=== PATIENT | female | born 1960 | race Caucasian/White ===

== ENCOUNTER → 2017-02-26 09:23 | Outpatient (CLI) | payer MEDICARE | END | disposition home or self-care (01) | LOC: D.RT 08:00 | DX: J44.9 Chronic obstructive pulmonary disease, unspecified (principal) ==

== ENCOUNTER → 2017-04-13 11:36 | Outpatient (CLI) | payer MEDICARE | END | disposition home or self-care (01) | LOC: D.US 04-05 10:00 | DX: N60.02 Solitary cyst of left breast (principal); R92.8 Other abnormal and inconclusive findings on diagnostic imaging of breast ==

== ENCOUNTER → 2017-05-21 09:30 | Outpatient (CLI) | payer MEDICARE | END | disposition home or self-care (01) | LOC: D.CT 09:30 | DX: R93.8 Abnormal findings on diagnostic imaging of other specified body structures (principal) ==

== ENCOUNTER → 2018-02-01 10:08 | Outpatient (CLI) | payer MEDICARE | END | disposition home or self-care (01) | LOC: D.US 10:08 | DX: I12.9 Hypertensive chronic kidney disease with stage 1 through stage 4 chronic kidney disease, or unspecified chronic kidney disease (principal); N18.2 Chronic kidney disease, stage 2 (mild); N13.9 Obstructive and reflux uropathy, unspecified; G62.9 Polyneuropathy, unspecified; I70.1 Atherosclerosis of renal artery; J44.9 Chronic obstructive pulmonary disease, unspecified; Z68.1 Body mass index [BMI] 19.9 or less, adult ==

== ENCOUNTER → 2018-09-28 09:48 | Outpatient (CLI) | payer MEDICARE, MEDICAID | END | disposition home or self-care (01) | LOC: D.MAMMO 09-01 14:15 | PROVIDERS: ATTEND Nurse Practitioner Acute Care | DX: Z12.31 Encounter for screening mammogram for malignant neoplasm of breast (principal) ==

== ENCOUNTER 2019-01-23 10:56 | Outpatient (CLI) | payer MEDICARE, MEDICAID ==
[~2019-01-23] VITALS: Ht 172.7 cm; Wt 47.7 kg
--- NOTE | ~2019-01-23 | HEMODYNAMI ---
PATIENT:TA LORENZO MEDICAL RECORD: [id number] : 56 LOCATION:[facility] ADMISSION DATE: 01/23/19 Generatedon:01/23/201914:28 Patient name: TA LORENZO Patient #: [id number] SSN: [id number] : 1960 Date of study: 01/23/2019 Page: Of Hemodynamic Procedure Report Patient Data Patient Demographics Procedure consent was obtained First Name: TA Gender: Female Last Name: MAURA : 1960 [facility] Initial: FUAD Age: 58 year(s) Patient #: [id number] Race: SSN: [id number] Additional ID: [id number] Contact details [address]: [address] [place] [address] State: [place] City: [place] Zip code: [address] Admission Admission Data Admission Date: 01/23/2019 Admission Time: 10:56 Arrival Date: 01/23/2019 Arrival Time: 13:00 Admit Source: Other Insurance Payor: Medicare Height (in.): 68.11 BSA: 1.56 (m2) Height (cm.): 173 BMI: 16.04 (kg/m2) Weight (lbs.): 105.82 Weight (kg.): 48 Lab Results Lab Result Date: 01/23/2019 Lab Result Time: 0:00 Biochemistry Name Units Result Min Max BUN mg/dl 8 --(*---)-- 7 18 Creatinine mg/dl 0.6 --(*---)-- 0.6 1.3 CBC Name Units Result Min Max Hemoglobin g/dl 14.2 --(*---)-- 13.5 17.5 Procedure Procedure Types Cath Procedure Diagnostic Procedure [facility] w/Coronaries Procedure Description Procedure Date Procedure Date: 01/23/2019 Procedure Start Time: 14:16 Procedure End Time: 14:27 Procedure Staff Name Function Loc Antoine MD Performing Physician Yobani Herrera RT Monitor Eula Pollard RT Scrub Aliya Foster RN Nurse Procedure Data Cath Procedure Fluoroscopy Diagnostic fluoroscopy Total fluoroscopy Time: 1.1 time: 1.1 min min Diagnostic fluoroscopy Total fluoroscopy dose: 81 dose: 81 mGy mGy Contrast Material Contrast Material Type Amount (ml) Isovue 300 51 Entry Location Entry Primary Successful Side Size Upsize Upsize Entry Closure Succes sful Closure Location (Fr) 1 (Fr) 2 (Fr) Remarks Device Remarks Femoral Right 5 Fr Exoseal artery Estimated blood loss: 10 ml Diagnostic catheters Device Type Used For End Catheter Placement MULTIPACK JL 4.0 5Fr Procedure catheter MULTIPACK 3DRC 5Fr Procedure catheter MULTIPACK Pigtail 5 Fr Ventriculography catheter Procedure Medications Medication Administration Route Dosage Oxygen etCO2 Nasal cannula 2 l/min Lidocaine 2% added to field 20 Heparin Flush Bag added to field 2 bags (1000units/500ml NS) 0.9% NaCl I.V. 100 ml/hr Versed I.V. 2 mg Fentanyl I.V. 50 mcg Versed I.V. 2 mg Hemodynamics Rest BSA: 1.56 (m2) HGB: 14.2 (g/dl) O2 Consumption: Estimated: 148.53 (ml/min) O2 Co nsumption indexed: Estimated:95.21 (ml/min/m) Heart Rate: 71 (bpm) Pressure Samples Time Site Value (mmHg) Purpose Heart Use Rate(bpm) 14:21 LV 125/2,8 Snapshot 76 14:21 LV 102/-11,3 EDP 81 Snapshots Pre Cath Intra NCS Post Cath Vital Signs Time Heart Resp SPO2 etCO2 NIBP Rhythm Pain Sedation Rate (ipm) (%) (mmHg) (mmHg) Status Level (bpm) 14:04:51 68 15 98 0 140/72(97) NSR 0 (11) 10(A) , No pain 14:09:09 64 16 100 17.2 134/62(98) NSR 0 (11) 10(A) , No pain 14:13:23 72 14 99 10.4 128/65(87) NSR 0 (11) 10(A) , No pain 14:17:33 73 18 98 35.2 139/62(94) NSR 0 (11) 9(A) , No pain 14:21:49 86 14 97 0 114/60(98) NSR 0 (11) 9(A) , No pain 14:25:41 74 16 96 40.4 120/58(99) NSR 0 (11) 10(A) , No pain Medications Time Medication Route Dose Verified Delivered Reason Notes Eff ectiveness by by 14:07:44 Oxygen etCO2 2 Loc Aliya used for Nasal l/min [facility] Cedric Foster RN procedure cannula 14:07:51 Lidocaine 2% added 20ml Loc Loc for local to vial [facility] anesthetic field MD MALDONADO 14:07:57 Heparin Flush added 2 Loc Loc used for Bag to bags [facility] procedure (1000units/500ml field MD MALDONADO NS) 14:08:14 0.9% NaCl I.V. 100 Loc Pisano Per ml/hr St Cedric Foster RN physician 14:13:27 Versed I.V. 2 mg Loc Grimaldoie for St Cedric Foster RN sedation 14:13:32 Fentanyl I.V. 50 Loc Reie for mcg St Cedric Foster RN sedation 14:18:53 Versed I.V. 2 mg Loc Grimaldoie for St Cedric Foster RN sedation Procedure Log Time Note 13:50:56 Aliya Foster RN sent for patient. Start room use. 13:51:37 Diagnostic Cath Status : Elective 13:52:14 Informed consent obtained and on chart 13:53:26 Admit Source: Other 13:53:40 Arrival Date: 01/23/2019 1:00:00 PM 13:53:46 Insurance Payor : Medicare 13:54:53 Patient Weight : 105.82 lbs 13:54:57 Patient Height : 68.11 inches 13:56:50 Lab Result : BUN 8 mg/dl 13:56:50 Lab Result : Hemoglobin 14.2 g/dl 13:56:50 Lab Result : Creatinine 0.6 mg/dl 13:57:03 Time tracking: Regular hours (M-F 7:00 - 5:00) 13:57:07 Plan of Care:Hemodynamics will remain stable., Cardiac rhythm will remain stable., Comfort level will be maintained., Respiratory function will remain adequate., Patient/ family verbilizes understanding of procedure., Procedure tolerated without complication., Recovers from procedure without complications.. 13:57:28 Patient received from Pre/Post Procedure Room to [facility] 2 Alert and oriented. Tansferred to table in Supine position. 13:57:29 Warm blankets applied, and crow hugger turned on for patient comfort. 13:57:29 Correct patient and procedure confirmed by team. 13:57:30 ECG and BP/O2 sat monitors applied to patient. 14:03:34 Baseline sample Acquired. 14:03:34 Vital chart was started 14:03:41 Rhythm: sinus rhythm 14:03:43 Full Disclosure recording started 14:03:46 H&P Date Dictated: 01/23/2019 Within 30 days and on chart., H&P Addendum completed by physician on day of procedure. (MUST COMPLETE FOR ALL OUTPATIENTS). 14:03:47 Pre-procedure instructions explained to patient. 14:03:47 Pre-op teaching completed and patient verbalized understanding. 14:03:49 Family in patients room. 14:03:51 Patient NPO since Midnight. 14:03:52 Is the patient allergic to Iodine/contrast media? No. 14:03:53 Was the patient premedicated? No 14:04:00 Is patient on blood thinner?No 14:04:02 Patient diabetic? No. 14:04:23 Patient not . Patient is over age 55. 14:04:26 ----Pre-sedation anethsthesia assessment.---- 14:04:39 Previous problem with sedation/anesthesia? No ? 14:04:43 Snore? Yes 14:04:48 Sleep apnea? Yes 14:04:49 Deviated septum? No 14:04:51 Opens mouth fully? Yes 14:04:53 Sticks out tongue? Yes 14:05:00 Airway obstruction? Yes COPD 14:05:09 Dentures? Yes ? 14:05:14 Pre procedure: right dorsailis pedis pulse 2+ Normal; easily identifiable; not easily obliterated 14:05:20 Modified Presley's test Ulnar > 7 seconds. 14:05:25 Patient pain scale 0/10 ?. 14:05:39 IV patent on arrival in right antecubital with 0.9% NaCl at [facility]. 14:05:43 Lab results completed and on chart. 14:07:44 Oxygen 2 l/min etCO2 Nasal cannula was administered by Aliya Foster RN; used for procedure; 14:07:51 Lidocaine 2% 20ml vial added to field was administered by Loc Antoine MD; for local anesthetic; 14:07:57 Heparin Flush Bag (1000units/500ml NS) 2 bags added to field was administered by Loc Antoine MD; used for procedure; 14:08:05 Right groin area was prepped with chlora-prep and draped in sterile fashion 14:08: Alarms reviewed by R. N. 14:08: Sharps counted by scrub and verified by R.N. 14:08:14 0.9% NaCl 100 ml/hr I.V. was administered by Aliya Foster RN; Per physician; 14:10:01 1) 90+ Normal kidney functon but urine findings or structural abnormalities or genetic trait point to kidney disease. 14:10:59 Maximum allowable contrast dose (3.7 X eGFR X 0.75)249 ml. 14:11:04 Physician arrived 14:11:05 --------ALL STOP TIME OUT------ 14:11:06 Final Timeout: patient, procedure, and site verified with staff and physician. All members of the team are in agreement. 14:11:08 Right groin site verified by team. 14:11:12 Fire Safety Assessment: A--An alcohol-based skin anteseptic being used preoperatively., C--Open oxygen or nitrous oxide is being used., D--An ESU, laser, or fiber-optic light is being used. 14:11:16 Physical assessment completed. ASA score P 2 - A patient with mild systemic disease as per Loc Antoine MD. 14:11:23 Sedation plan: IV Moderate Sedation Medication:Versed, Fentanyl 14:12:34 Use device set Femoral Dx 14:12:35 ACIST Syringe (19345) opened to sterile field. 14:12:36 Bag Decanter () opened to sterile field. 14:12:36 Medline Cath Pack ([id number]) opened to sterile field. 14:12:39 ACIST Hand Control (32734) opened to sterile field. 14:12:40 ACIST Manifold (75758) opened to sterile field. 14:12:41 DIAGNOSTIC Multipack 5Fr catheter set (NM4930) opened to sterile field. 14:12:41 Tegaderm 4 x 4 (1626W) opened to sterile field. 14:12:43 EMERALD Guide Wire (184-348) opened to sterile field. 14:12:44 SHEATH 5FR Herald (BUF105) opened to sterile field. 14:13:27 Versed 2 mg I.V. was administered by Aliya Foster RN; for sedation; 14:13:32 Fentanyl 50 mcg I.V. was administered by Aliya Foster RN; for sedation; 14:14:10 Zero performed for pressure channel P1 14:16:46 Procedure started. 14:16:55 Local anesthetic to right femoral artery with Lidocaine 2% by Loc Antoine MD.INITIAL ACCESS ONLY 14:17:32 A 5 Fr sheath was inserted into the Right Femoral artery 14:18:11 A MULTIPACK JL 4.0 5Fr catheter was advanced over the wire and used for Procedure. 14:18:48 LCA angiography performed. 14:18:53 Versed 2 mg I.V. was administered by Aliya Foster RN; for sedation; 14:19:17 Catheter removed. 14:19:39 A MULTIPACK 3DRC 5Fr catheter was advanced over the wire and used for Procedure. 14:20:23 RCA angiography performed. 14:21:18 A MULTIPACK Pigtail 5 Fr catheter was advanced over the wire and used for Ventriculography. 14:21:52 LV hemodynamics recorded. 14:21:54 LV gram done using JUNG 14:21:59 EF : 55 % 14:22:43 EXOSEAL 5Fr (EX500) opened to sterile field. 14:22:55 Sheath removed intact; hemostasis achieved with Exoseal to the Right Femoral artery. 14:22:59 Procedure ended.(Physican Out) 14:23:14 Fluoroscopy time 01.10 minutes. 14:23:20 Flurop Dose total: 81 14:23:20 Fluoroscopy dose: 81 mGy 14:23:27 Dose Area Product 4670 mGy/cm. 14:23:32 Contrast amount:Isovue 300 51ml. 14:23:41 Maximum allowable dose exceeded? No. 14:25:02 Sharps counted by scrub and verified by R.N. 14:25:31 Post procedure rhythm: sinus rhythm 14:25:35 Estimated blood loss: 10 ml 14:25:39 Patient needs reinforcement of post procedure teaching. 14:25:41 Procedure and supply charges have been captured, reviewed, submitted and are correct. 14::39 Insertion/operative site no bleeding no hematoma. 14:26:43 Post-op/insertion site Right Femoral artery dressed using a 4 x 4 and Tegaderm. 14:26:47 Post right femoral artery:stable 14:26:50 Post Procedure Pulses reassessed and unchanged 14:26:58 Post procedure: right dorsailis pedis pulse 1+ Palpable, but thready & weak; easily obliterated. 14:27:03 Vital chart was stopped 14:27:04 See physician's report for complete and final results. 14:27:13 Report given to Pre/Post Procedure Room. 14:27:16 Patient transfered to Pre/Post Procedure Room with Stretcher. 14:27:18 Procedure ended. 14:27:18 Full Disclosure recording stopped 14:27:23 End room use (Document Last) Device Usage Item Name Manufacture Quantity Catalog Hospital Part Current Minimal L ot# / Number Charge Number Stock Stock Serial# Code ACIST Acist 1 05181 727194 316257 [id number] 20 Syringe Medical (52967) Systems Inc Bag Microtek 1 939709 74241 596767 5 Decanter Medical Inc. () Medline Medline 1 [id number] 806565 47803 472924 5 Cath Pack ([id number]) ACIST Hand Acist 1 03794 787509 487340 745520 5 Control Medical (27363) Systems Inc ACIST Acist 1 16640 816034 549555 001155 5 Manifold Medical (81336) Systems Inc DIAGNOSTIC Cardinal 1 [id number] 651854 59948 193349 30 Multipack Health 5Fr catheter set (KL3672) Tegaderm 4 3M 1 1626W 361385 756707 881409 5 x 4 (1626W) EMERALD Cardinal 1 502-455 436655 263013 992069 5 Guide Wire Health (502-455) SHEATH 5FR Terumo 1 HUB713 700965 700092 940813 5 Herald (ONJ811) MULTIPACK Cardinal 1 896357 5 JL 4.0 5Fr Health catheter MULTIPACK Cardinal 1 080190 5 3DRC 5Fr Health catheter MULTIPACK Cardinal 1 899195 5 Pigtail 5 Health Fr catheter EXOSEAL 5Fr Cardinal 1 EX500 216446 729883 640901 10 (EX500) Health Signature Audit [place] Stage Time Signature Unsigned Intra-Procedure 01/23/2019 Yobani Herrera 2:28:49 PM RT(R) (CV) Signatures Performing Physician : Signature : Loc Antoine MD Date : Time : Monitor : Yobani Herrera RT Signature : Date : Time : Nurse : Aliya Foster RN Signature : Date : Time : [facility] [address] [place] [address]
[2019-01-23] MEDS ORDERED: DEMEROL PO (11:19)
[2019-01-23] MEDS ORDERED: ZOFRAN4 MG PO (11:19)
[2019-01-23] MEDS ORDERED: SYMBICORT 16010.2 GM INH (11:20)
[2019-01-23] MEDS ORDERED: REMERON15 MG PO (11:20)
[2019-01-23] MEDS ORDERED: PREDNISONE10 MG PO (11:21)
[2019-01-23] MEDS ORDERED: PROTONIX40 MG PO (11:21)
[2019-01-23] MEDS ORDERED: OXYCODONE HCL5 M1 PO (11:21)
[2019-01-23] MEDS ORDERED: AIMOVIG INJ (11:23)
[2019-01-23] MEDS ORDERED: TRELEGY ELLIPT1 EACH INH (11:24)
[2019-01-23] MEDS ORDERED: ALBUTEROL0.63 MG/3 INH (11:25)
[2019-01-23] MEDS ORDERED: ALBUTEROL SULF8.5 GM INH (11:26)
[2019-01-23 11:36] VITALS: BP 121/40; Ht 172.7 cm; Wt 47.7 kg
[2019-01-23 11:53] LABS: BASOPHILS 0.6 % (0-2); EOSINOPHILS 2.1 % (0-7); HEMATOCRIT 41.4 % (36.0-48.0); HEMOGLOBIN 14.2 g/dL (12-16); IMMATURE GRANULOCYTES 0.1 % (0-5); LYMPHOCYTES 36.1 % (15-50); MCH 30.8 pg (26.0-34.0); MCHC 34.3 g/dL (31.0-37.0); MCV 89.8 fL (80.0-100.0); MONOCYTES 8.6 % (2-11); NEUTROPHILS 52.5 % (40-80); PLATELET COUNT 255 10x3/uL (130-400); RBC 4.61 10x6/uL (4.00-5.40); RDW 12.4 % (11.5-14.5); WBC 8.7 10x3/uL (4.8-10.8)
[2019-01-23 11:58] LABS: CALC OSMOLALITY 275 mosm/kg (275-300); CALCIUM 8.8 mg/dL (8.5-10.1); CARBON DIOXIDE 30.4 mmol/L (21.0-32.0); CHLORIDE - SERUM 104 mmol/L (98-107); CHOL - HDL RATIO 4.4 ratio (2.3-4.1); CREATININE - SERUM 0.6 mg/dL (0.6-1.3); GLUCOSE 80 mg/dL (74-106); POTASSIUM - SERUM 4.3 mmol/L (3.5-5.1); SODIUM 140 mmol/L (136-145); UREA NITROGEN 8 mg/dL (7-18); eGFR NON AFRICAN AMERICAN > 90 mL/min (90-120)
--- NOTE | 2019-01-23 14:36 | NUR ---
PT ARRIVED BY STRETCHER. PLACED ON MONITORS. ASSESSMENT COMPLETED. VSS. CALL LIGHT WITHIN REACH.
--- NOTE | 2019-01-23 14:51 | NUR ---
RIGHT GROIN DRESSING C/D/I. NO S/S OF HEMATOMA NOTED. VSS. PT GIVEN SIPS OF WATER. DENIES NAUSEA.
--- NOTE | 2019-01-23 15:20 | NUR ---
RIGHT GROIN DRESSING C/D/I. NO S/S OF HEMATOMA NOTED. VSS. PT RESTING COMFORTABLY AT THIS TIME.
--- NOTE | 2019-01-23 15:35 | NUR ---
RIGHT GROIN DRESSING C/D/I. NO S/S OF HEMATOMA NOTED. PT'S HEAD OF BED INC TO 30 DEGREES. TOLERATED WELL. VSS. PT SET UP WITH DRINK AND SANDWICH TRAY. DENIES NAUSEA
--- NOTE | 2019-01-23 16:14 | NUR ---
PIV D/C'D WITH CATH TIP INTACT. PT VERY SENSITIVE TO TAPE REMOVAL. ALL TAPE REMOVED. SKIN INTACT. 2X2 APPLIED AND PAPER TAPE COVERED IV INSERTION SITE. NO BLEEDING NOTED. PT DRESSED SELF AND AMBULATED TO RESTROOM WITH ASSIST. RIGHT GROIN DRESSING C/D/I. NO S/S OF HEMATOMA NOTED.
--- NOTE | 2019-01-23 16:20 | NUR ---
DISCUSSED DISCHARGE INSTRUCTIONS WITH PT. SHE VOICED UNDERSTANDING.
--- NOTE | 2019-01-23 16:30 | NUR ---
PT TAKEN OUT TO VEHICLE BY WHEELCHAIR. NO S/S OF DISTRESS NOTED. ALL BELONGINGS AND PAPERWORK IN HAND.
--- NOTE | 2019-01-24 14:14 | OP ---
PATIENT NAME: TA LORENZO FUAD MEDICAL RECORD: [id number] :56 LOCATION:D.CAT ADMISSION DATE: SURGEON: AMY RAMIREZ MD DATE OF OPERATION: 01/23/2019 PROCEDURE: Left heart catheterization, selective coronary angiography, right femoral artery approach. CATHETERS: A 5-Georgian sheath, 5/4 left and right Shiloh, 5/4 pig. The procedure was well tolerated. The patient was returned to bagley. Sheath was removed. ExoSeal device was placed. FINDINGS: Left ventriculography in 30-degree JUNG view; normal wall motion and normal systolic function. CORONARY ANATOMY: LEFT MAIN: Left main is free of disease. LAD: Free of disease in the diagonal system. CIRCUMFLEX: Free of disease in the marginal system. RIGHT CORONARY ARTERY: Dominant artery, gives rise to PDA, free of disease. IMPRESSION: Normal LV systolic function. Normal coronary anatomy. TRANSINT:[id number] Voice Confirmation ID: [id number] DOCUMENT ID: [id number] AMY RAMIREZ MD at 1414 CC: [id number] DICTATION DATE: 01/23/19 1428 BEAD INSPECTOR: 01/23/19 1558 DEP CLI 01/23/19 [address] [place] [address]
== END 2019-01-23 16:30 | disposition home or self-care (01) ==
LOC: D.CATH 10:56
PROVIDERS: ATTEND Internal Medicine Interventional Cardiology
DX: I20.0 Unstable angina (principal); R06.02 Shortness of breath

== ENCOUNTER 2019-01-25 13:05 | Emergency (ER) | payer MEDICARE, MEDICAID ==
[~2019-01-25] VITALS: Ht 172.7 cm; Wt 48.2 kg
[~2019-01-25 13:05] MED LIST: AIMOVIG INJ; ALBUTEROL SULF8.5 GM INH; ALBUTEROL0.63 MG/3 INH; DEMEROL PO; OXYCODONE HCL5 M1 PO; PREDNISONE10 MG PO; PROTONIX40 MG PO; REMERON15 MG PO; SYMBICORT 16010.2 GM INH; TRELEGY ELLIPT1 EACH INH; ZOFRAN4 MG PO
[2019-01-25 13:14] VITALS: Ht 172.7 cm; Wt 48.2 kg
[2019-01-25 13:32] LABS: BASOPHILS 0.4 % (0-2); EOSINOPHILS 2.6 % (0-7); HEMATOCRIT 43.9 % (36.0-48.0); HEMOGLOBIN 15.2 g/dL (12-16); IMMATURE GRANULOCYTES 0.2 % (0-5); LYMPHOCYTES 36.7 % (15-50); MCH 31.1 pg (26.0-34.0); MCHC 34.6 g/dL (31.0-37.0); MCV 89.8 fL (80.0-100.0); MEAN PLATELET VOLUME 8.7 fL (7.4-10.4); MONOCYTES 7.3 % (2-11); NEUTROPHILS 52.8 % (40-80); PLATELET COUNT 228 10x3/uL (130-400); RBC 4.89 10x6/uL (4.00-5.40); RDW 12.3 % (11.5-14.5); WBC 8.1 10x3/uL (4.8-10.8)
[2019-01-25 13:46] LABS: ALBUMIN 3.7 g/dL (3.4-5.0); ALKALINE PHOSPHATASE 85 U/L (46-116); ALT (SGPT) 14 U/L (10-68); BILIRUBIN - TOTAL 0.29 mg/dL (0.2-1.3); CALC OSMOLALITY 273 mosm/kg (275-300); CARBON DIOXIDE 31.1 mmol/L (21.0-32.0); CHLORIDE - SERUM 102 mmol/L (98-107); CREATININE - SERUM 0.7 mg/dL (0.6-1.3); GLUCOSE 95 mg/dL (74-106); POTASSIUM - SERUM 4.1 mmol/L (3.5-5.1); PROTEIN - SERUM 7.3 g/dL (6.4-8.2); SODIUM 138 mmol/L (136-145); UREA NITROGEN 7 mg/dL (7-18); eGFR NON AFRICAN AMERICAN 90 mL/min (90-120)
[2019-01-25 13:54] LABS: APTT 27.9 SECONDS (22.8-39.4); INR 0.91 (0.85-1.17); PROTIME 11.8 SECONDS (11.6-15.0)
[2019-01-25 13:58] LABS: CKMB 0.7 U/L (0.0-3.6); CREATINE KINASE 76 UL (21-215); MAGNESIUM - SERUM 2.2 mg/dL (1.8-2.4); THYROID STIMULATING HORMONE 2.95 uIU/mL (0.36-3.74)
[2019-01-25 14:03] LABS: TROPONIN-I < 0.017 ng/mL (0.000-0.060)
[2019-01-25] MEDS ORDERED: MECLOFENAMATE S50 MG PO (14:25)
[2019-01-25] MEDS ORDERED: PHENERGAN25 M1 PO (14:25)
[2019-01-25 15:36] VITALS: BP 119/67
== END 2019-01-25 15:37 | disposition home or self-care (01) ==
LOC: D.ER 13:05
PROVIDERS: Emergency Medicine
DX: R42 Dizziness and giddiness (principal); R20.2 Paresthesia of skin

== ENCOUNTER → 2019-02-10 08:56 | Outpatient (CLI) | payer MEDICARE ==
[2019-01-25 13:14] VITALS: BMI 16.1
[~2019-02-10 08:56] MED LIST changes: +MECLOFENAMATE S50 MG PO; +PHENERGAN25 M1 PO
== END | disposition home or self-care (01) ==
LOC: D.US 08:56
PROVIDERS: ATTEND Nurse Practitioner Family
DX: N18.2 Chronic kidney disease, stage 2 (mild) (principal)

== ENCOUNTER → 2019-03-10 12:14 | Outpatient (CLI) | payer MEDICARE ==
[2019-01-25 13:14] VITALS: BMI 16.1
== END | disposition home or self-care (01) ==
LOC: D.CT 12:14
PROVIDERS: ATTEND Internal Medicine
DX: N13.30 Unspecified hydronephrosis (principal)

== ENCOUNTER → 2019-03-10 17:12 | Outpatient (CLI) | payer MEDICARE ==
[2019-01-25 13:14] VITALS: BMI 16.1
== END | disposition home or self-care (01) ==
LOC: D.LABREF 17:12
PROVIDERS: ATTEND Urology
DX: N13.30 Unspecified hydronephrosis (principal)

== ENCOUNTER 2019-04-11 05:30 | Day surgery (SDC) | payer MEDICARE ==
[2019-04-10 10:54] LABS: HEMATOCRIT 44.3 % (36.0-48.0); HEMOGLOBIN 14.8 g/dL (12-16); MCH 31.1 pg (26.0-34.0); MCHC 33.4 g/dL (31.0-37.0); MCV 93.1 fL (80.0-100.0); MEAN PLATELET VOLUME 9.1 fL (7.4-10.4); RBC 4.76 10x6/uL (4.00-5.40); RDW 12.3 % (11.5-14.5); WBC 7.2 10x3/uL (4.8-10.8)
[2019-04-10 10:58] LABS: CALC OSMOLALITY 276 mosm/kg (275-300); CALCIUM 9.1 mg/dL (8.5-10.1); CARBON DIOXIDE 32.4 mmol/L (21.0-32.0); CHLORIDE - SERUM 103 mmol/L (98-107); CREATININE - SERUM 0.5 mg/dL (0.6-1.3); GLUCOSE 92 mg/dL (74-106); POTASSIUM - SERUM 4.3 mmol/L (3.5-5.1); SODIUM 139 mmol/L (136-145); UREA NITROGEN 9 mg/dL (7-18); eGFR NON AFRICAN AMERICAN > 90 mL/min (90-120)
[~2019-04-11] VITALS: Ht 172.7 cm; Wt 49.9 kg
[~2019-04-11 05:30] MED LIST changes: +NITROQUICK0.4 MG SL; +SINGULAIR10 MG PO; +[UNRECOGNIZED DRUG - OTHER] TD
[2019-04-11 06:22] VITALS: BP 96/56; Ht 172.7 cm; Wt 49.9 kg
--- NOTE | 2019-04-11 09:26 | NUR ---
0916 1 DEMEROL 50MG PO FOR COMPLAINTS OF PAIN TO LOWER BACK & LOWER RIGHT ABDOMEN. NOW RANKS PAIN @ 01/28. TURNED TO LEFT SIDE. CALL LIGHT IN REACH. Andrea MALONE R.N.
--- NOTE | 2019-04-11 10:20 | NUR ---
1015 UP TO BATHROOM. AMBULATORY WITHOUT DIFFICULTY. VOIDED URINE WITH SOME BRIGHT RED BLOOD NOTED. IV DC'ED WITH CATH INTACT & 200ML LTC. DRESSING. Andrea MALONE R.N.
--- NOTE | 2019-04-11 10:23 | OP ---
PATIENT NAME: TA LORENZO MEDICAL RECORD: [id number] :56 [facility] AD[facility] DATE: SURGEON: SRIKANTH MICHAELS MD DATE OF OPERATION: 04/11/2019 SURGEON: Srikanth Michaels MD ANESTHESIA: TIVA by Jayden Cali CRNA. DIAGNOSES: Urinary retention, fecal incontinence. PROCEDURE: InterStim stage I, right S3. FINDINGS: Good jacquie and toe flexion responses at the right S3 nerve root. ESTIMATED BLOOD LOSS: None. CLINICAL HISTORY: This is a 59-year-old female, who has chronic urinary retention. She performs self-intermittent catheterization 4 times a day. She also has issues with fecal incontinence. She wishes to have the InterStim bladder pacemaker trial to control both the fecal incontinence and to try to restore her own natural voiding. SHE IS ALLERGIC TO CODEINE, PENICILLIN, HYDROCODONE AND BEE STINGS. She was given Levaquin IV brick and block mason to the OR. DESCRIPTION OF PROCEDURE: The patient was placed in prone position on the OR table. She was then prepped and draped. She was given IV sedation. Under fluoroscopy, we identified the level of the S3 foramen and also marked out the role of sacral foramen on each side using a marking pen. The overlying skin over the S2 foramen was infiltrated with local anesthetic in this case consisting of 2% lidocaine with epinephrine. The spinal needle was inserted into the right S3 foramen. On the left side, I could not get into the S3 foramen. When we tested the right S3 foramen, it had an excellent response in terms of jacquie, reflex and toe flexion reflex on that side. The patient also reported that she was feeling the stimulation in the bladder and vaginal areas, which are the ideal locations. We decided to proceed with the right S3 foramen. A small incision was made at the base of the spinal needle on each side of the needle. The stylet of the needle was removed. An extra-long stylet was then placed down through the needle foramen. The needle was then removed, leaving the extra-long stylet in place. The trocar dilator was then placed over the extra-long stylet. With the trocar sheath in the right position as confirmed by fluoroscopy, the trocar dilator and the extra-long stylet were removed. Through the lumen of the sheath, the 4-channel tined electrode was placed into the S3 foramen. We tested each with the channels in turn. Channels 0 and 1 did not show any response. Channels 2 and 3 showed excellent responses. The patient is extremely thin and I decided to go into the lower back to prevent pressure on the pacemaker when she is lying down in bed. An incision was made about 2 cm in length in the lower part of the right back. A tunneling device was used to bring the permanent electrode to this needed location. Here the permanent electrode was connected to the temporary test electrode. A silicone sheath was placed around the connection to make it watertight. The ends of the sheath were tied down using 2-0 Prolene ties. The connection itself was made by tightening down for connecting screws with a torque-limiting screwdriver. The tunneling device was then again used to bring the temporary dynamometer tester engine out through an exit site in the left lower back. The skin over the sacrum was sutured using 4-0 Vicryl simple interrupted suture. Subcutaneous sutures of 4-0 Vicryl were OPERATIVE REPORT [id number] TA LORENZO placed in the 2 cm right iliac crest region incision. This incision was closed using suzie. Dressings were applied. The InterSti banking representative, the Medtronic banking representative will be teaching the patient how to use the temporary game programmer. I will see the patient back in 1-2 weeks to check on her symptoms. TRANSINT:[id number] Voice Confirmation ID: [id number] DOCUMENT ID: [id number] SRIKANTH MICHAELS MD at 1023 CC: [id number] DICTATION DATE: 04/11/19905 POLYTECHNIC TEACHER: 04/11/19 0948 [facility] [address] [place] [address]
--- NOTE | 2019-04-26 13:38 | EC ---
PATIENT:TA LORENZO DATE OF SERVICE: 04/11/19 SEX: F MEDICAL RECORD: [id number] DATE OF : 56 LOCATION:D.OPS AGE OF PATIENT: 59 ADMISSION DATE: 04/11/19 REFERRING PHYSICIAN: INTERPRETING PHYSICIAN: AMY RAMIREZ MD ECHOCARDIOGRAM REPORT ECHO CHARGES Date: CLINICAL DIAGNOSIS: ECHOCARDIOGRAPHIC MEASUREMENTS (adult normal given) AC root (d.<3.7cm) cm LV Septum d (<1.2 cm> cm Valve Excursion cm LV Septum (systole) cm Left Atria (s.<4.0cm> cm LVPW d(<1.2cm) cm RV (d.<2.3cm) cm LVPW (sytole) cm LV diastole(<5.6CM) cm MV E-F(>70mm/sec) cm LV systole cm LVOT Diameter cm MV exc.(>10mm) cm Est.ejection fraction (50-75%) % DOPPLER: LVIT cm/sec A cm/sec E cm/sec LA cm/sec RVSP mmHg LVOT cm/sec AOP1/2T m/s Asc. Ao cm/sec RVOT cm/sec RA cm/sec PA cm/sec AV Gradient Peak mmHg AV Mean mmHg AV Area cm MV Gradient Peak mmHg MV Mean mmHg MV Area cm COMMENTS: Superintendent Horticulture: Brake Shoe Rebuilder: CHON# Pericardial Effusion DATE OF SERVICE: Adequate 2D, color flow, spectral Doppler, and M-mode. No LVH. LV internal dimension is normal. Wall motion is normal. EF is greater than or equal to 55%. Aortic valve is tricuspid. No evidence of stenosis by Doppler interrogation. Left atrium is normal at 3.5 cm. Mitral valve shows no prolapse. Trace MR. Right-sided chambers grossly normal. Trace TR. TRANSINT:[id number] Voice Confirmation ID: [id number] DOCUMENT ID: [id number] ECHOCARDIOGRAM REPORT [id number] TA LORENZO AMY MONSALVE MD at 1338 CC: [id number] DICTATION DATE: 04/24/19 1238 EXTRACTOR MACHINE OPERATOR: 04/24/19 1301 [facility] 04/11/19 [place] [id number]
== END 2019-04-11 10:30 | disposition home or self-care (01) ==
LOC: D.OPS 05:30 → D.PAN 08:00 → D.OPS 10:30
PROVIDERS: Anesthesiology; ATTEND Urology
DX: R33.9 Retention of urine, unspecified (principal); R15.9 Full incontinence of feces

== ENCOUNTER 2019-04-25 05:25 | Day surgery (SDC) | payer MEDICARE ==
[2019-04-24 13:02] LABS: BASOPHILS 0.6 % (0-2); EOSINOPHILS 2.2 % (0-7); HEMATOCRIT 44.5 % (36.0-48.0); HEMOGLOBIN 14.6 g/dL (12-16); IMMATURE GRANULOCYTES 0.3 % (0-5); LYMPHOCYTES 32.1 % (15-50); MCH 30.9 pg (26.0-34.0); MCHC 32.8 g/dL (31.0-37.0); MCV 94.1 fL (80.0-100.0); MEAN PLATELET VOLUME 8.7 fL (7.4-10.4); MONOCYTES 7.6 % (2-11); NEUTROPHILS 57.2 % (40-80); PLATELET COUNT 261 10x3/uL (130-400); RBC 4.73 10x6/uL (4.00-5.40); RDW 12.6 % (11.5-14.5); WBC 10.1 10x3/uL (4.8-10.8)
[2019-04-24 13:16] LABS: CALC OSMOLALITY 275 mosm/kg (275-300); CALCIUM 9.1 mg/dL (8.5-10.1); CARBON DIOXIDE 29.4 mmol/L (21.0-32.0); CHLORIDE - SERUM 104 mmol/L (98-107); CREATININE - SERUM 0.7 mg/dL (0.6-1.3); GLUCOSE 87 mg/dL (74-106); POTASSIUM - SERUM 4.8 mmol/L (3.5-5.1); SODIUM 139 mmol/L (136-145); UREA NITROGEN 9 mg/dL (7-18); eGFR NON AFRICAN AMERICAN 90 mL/min (90-120)
[2019-04-24 13:27] LABS: LDL-HDL RATIO 2.7 ratio (1.5-3.5)
[~2019-04-25] VITALS: Ht 172.7 cm; Wt 49.9 kg
[2019-04-25 06:20] VITALS: BP 103/66; Ht 172.7 cm; Wt 49.9 kg
--- NOTE | 2019-04-25 09:54 | NUR ---
0950 CONTINUES TO HAVE NAUSEA WITHOUT EMESIS, ALCOHOL SWAB PROVIDED.
--- NOTE | 2019-04-25 10:10 | NUR ---
0945 METRONIC REP GIVES INSTRUCTIONS TO FAMILY AND PT RE INTERSTIM VALUES AND MONITOR.
--- NOTE | 2019-04-25 11:52 | OP ---
PATIENT NAME: TA LORENZO FUAD MEDICAL RECORD: [id number] :56 LOCATION:D.OPS ADMISSION DATE: SURGEON: SRIKANTH MICHAELS MD DATE OF OPERATION: 04/25/2019 SURGEON: Srikanth Michaels MD LOAN SERVICING SPECIALIST: MELODY by David Gomes CRNA DIAGNOSES: Urinary retention, idiopathic. Also, fecal incontinence. PROCEDURES: InterStim stage II. ESTIMATED BLOOD LOSS: None. CLINICAL HISTORY: This is a 59-year-old female with idiopathic urinary retention. She was performing self-intermittent catheterization. She also has issues with fecal incontinence. She had InterStim stage I trial. She had superb response to that. She was voiding with a postvoid residual of 0 mL. She had no further episodes of fecal incontinence. She comes now to have the stage II permanent implantation. She is allergic to multiple drugs including CODEINE, PENICILLIN, HYDROCODONE AND PAPER TAPE. SHE IS ALLERGIC TO BEE VENOM. She is also extremely thin. She did not wish to have the InterStim pacemaker placed in the posterior portion of her body as she lies on her back when she is sleeping. We will try to migrate the pacemaker pocket as most anterior position as possible. She was given Levaquin IV air pollution engineer to the OR. DESCRIPTION OF PROCEDURE: The patient was placed in the lithotomy position with the right side up. She was then given IV sedation. She was prepped and draped. The previous suzie from the right iliac crest incision were removed. The incision was infiltrated with 0.25% Marcaine with epinephrine. The incision was reopened. The connection between the permanent electrode and the temporary test electrode was brought out through the skin incision. The connection was disrupted by removing the covering sheath, and then loosening up the four connecting screws. The temporary test electrode was then cut where the portion of the four connecting screws led to the thinner electrode. This allowed the electrode wire to be completely removed by pulling from the skin level externally. I then brought out the permanent electrode along the skin and saw how far it could extend. It could extend to the lateral surface of the patient just above the iliac crest. We decided to put the implant here. A 4.5 cm incision was made transversely here in this location after infiltrating the skin with local anesthetic. A subcutaneous pocket was then made with blunt dissection using the fingers. A tunneling device was used to bring the distal end of the permanent electrode from the initial pocket in the right iliac crest region to the lateral pocket that I just made. Here, the electrode was inserted into the pacemaker. The connection was tightened down by placing a torque-limiting screwdriver and using that to tighten down the connection. The pacemaker was then inserted into the pocket. The labeling was facing upwards. We performed telemetry on the pacemaker and all functions were working correctly. The wounds are closed in 2 layers. The first layer was of simple interrupted 4-0 Vicryl to bring the subcutaneous fat back together. Then, a running subcuticular suture of 4-0 Monocryl was used to close the skin incisions. Steri-Strips were then applied over this. I will see the patient back in followup next week to check on her wound healing. OPERATIVE REPORT [id number] TA LORENZO FUAD TRANSINT:[id number] Voice Confirmation ID: [id number] DOCUMENT ID: [id number] SRIKANTH MICHAELS MD at 1152 CC: [id number] DICTATION DATE: 04/25/1959 ELECTRICAL CONTINUITY TESTER: 04/25/19 1139 [facility] [address] [place] [address]
== END 2019-04-25 10:45 | disposition home or self-care (01) ==
LOC: D.OPS 05:25 → D.PAN 07:30 → D.OPS 07:30
PROVIDERS: ATTEND Urology
DX: R33.9 Retention of urine, unspecified (principal); R15.9 Full incontinence of feces; J44.9 Chronic obstructive pulmonary disease, unspecified; J96.11 Chronic respiratory failure with hypoxia; F17.210 Nicotine dependence, cigarettes, uncomplicated

== ENCOUNTER → 2020-02-27 09:49 | Outpatient (CLI) | payer MEDICARE ==
[2019-04-25 06:20] VITALS: BMI 16.7
--- NOTE | 2020-02-28 09:11 | EC ---
PATIENT:TA LORENZO DATE OF SERVICE: 02/27/20 SEX: F MEDICAL RECORD: [id number] DATE OF : 56 LOCATION:D[facility] AGE OF PATIENT: 59 ADMISSION DATE: 02/27/20 REFERRING PHYSICIAN: INTERPRETING PHYSICIAN: AMY RAMIREZ MD ECHOCARDIOGRAM REPORT ECHO CHARGES 4 ECHO COMPLETE Date: 02/27/20 CLINICAL DIAGNOSIS: HX OF HTN/COPD/TRICUSPID REGURG ECHOCARDIOGRAPHIC MEASUREMENTS (adult normal given) AC root (d.<3.7cm) 3.8 cm LV Septum d (<1.2 cm> 0.90 cm Valve Excursion 1.4 cm LV Septum (systole) 1.4 cm Left Atria (s.<4.0cm> 2.7 cm LVPW d(<1.2cm) 0.90 cm RV (d.<2.3cm) 2.8 cm LVPW (sytole) 1.2 cm LV diastole(<5.6CM) 4.6 cm MV E-F(>70mm/sec) cm LV systole 3.1 cm LVOT Diameter 1.5 cm MV exc.(>10mm) 2.0 cm Est.ejection fraction (50-75%) % DOPPLER: LVIT cm/sec A 51.0 cm/sec E 68.0 cm/sec LA cm/sec RVSP 33 mmHg LVOT 97 cm/sec AOP1/2T m/s Asc. Ao 124 cm/sec RVOT 72 cm/sec RA cm/sec PA 108 cm/sec AV Gradient Peak 6.14 mmHg AV Mean 3.28 mmHg AV Area 1.5 cm MV Gradient Peak 2.95 mmHg MV Mean 0.98 mmHg MV Area cm COMMENTS: Core Composer Machine Tender: 2 JOAN RUANO Steam Engineer: 3 Dr. Oliveros TAPE# PACS Pericardial Effusion N DATE OF SERVICE: Adequate 2D, color flow imaging, spectral Doppler, and M-Mode. No LVH. LV internal dimension is normal. Wall motion is normal. EF is greater than or equal to 55%. Aortic valve is tricuspid. No evidence of stenosis by Doppler interrogation. Left atrium is normal. Mitral valve shows no prolapse. Trace MR. Right-sided chambers are grossly normal. Trace to mild TR. TRANSINT:[id number] Voice Confirmation ID: [id number] DOCUMENT ID: [id number] ECHOCARDIOGRAM REPORT [id number] TA LORENZO GREGORY A MD at 0911 CC: [id number] DICTATION DATE: 02/27/20 1509 METAL ROLLING MILL OPERATOR: 02/27/20 2309 [facility]P CLI 02/27/20 [place] [id number] [place] [id number]
== END | disposition home or self-care (01) ==
LOC: D.HCCECHO 09:49
PROVIDERS: ATTEND Internal Medicine Interventional Cardiology
DX: I10 Essential (primary) hypertension (principal)

== ENCOUNTER 2020-03-28 08:17 | Day surgery (SDC) | payer MEDICARE ==
[~2020-03-28] VITALS: Ht 172.7 cm; Wt 50.8 kg
[~2020-03-28 08:17] MED LIST changes: +NEURONTIN 300300 MG PO
[2020-03-28 08:37] LABS: EOSINOPHILS 2.8 % (0-7); HEMATOCRIT 43.1 % (36.0-48.0); IMMATURE GRANULOCYTES 0.2 % (0-5); MCH 30.1 pg (26.0-34.0); MCHC 32.5 g/dL (31.0-37.0); MCV 92.7 fL (80.0-100.0); MEAN PLATELET VOLUME 8.6 fL (7.4-10.4); MONOCYTES 8.3 % (2-11); NEUTROPHILS 49.7 % (40-80); PLATELET COUNT 245 10x3/uL (130-400); RBC 4.65 10x6/uL (4.00-5.40); RDW 12.6 % (11.5-14.5); WBC 6.2 10x3/uL (4.8-10.8)
[2020-03-28 08:49] LABS: CALC OSMOLALITY 273 mosm/kg (275-300); CALCIUM 9.1 mg/dL (8.5-10.1); CARBON DIOXIDE 30.1 mmol/L (21.0-32.0); CHLORIDE - SERUM 104 mmol/L (98-107); CREATININE - SERUM 0.7 mg/dL (0.6-1.3); GLUCOSE 87 mg/dL (74-106); POTASSIUM - SERUM 4.5 mmol/L (3.5-5.1); SODIUM 138 mmol/L (136-145); UREA NITROGEN 11 mg/dL (7-18); eGFR NON AFRICAN AMERICAN 90 mL/min (90-120)
[2020-03-28 10:16] VITALS: BP 128/66; Ht 172.7 cm; Wt 50.8 kg
--- NOTE | 2020-03-28 14:49 | NUR ---
1334 IV DC'D. CATHETER TIP INTACT. NO BLEEDING AT SITE. COBAN DRESSING APPLIED. REVIEWED DISCHARGE INSTRUCTIONS WITH PATIENT WHO VOICES UNDERSTANDING OF INSTRUCTIONS
--- NOTE | 2020-03-29 08:17 | OP ---
PATIENT NAME: TA LORENZO MEDICAL RECORD: [id number] :56 LOCATION:D.OPS ADMISSION DATE: SURGEON: EVAN MICHAELS MD DATE OF OPERATION: 03/28/2020 SURGEON: Evan Michaels MD ANESTHESIA: TIVA by Yann Mayen CRNA. DIAGNOSIS: Nonfunctioning pacemaker and lead. PROCEDURE: Removal of InterStim pacemaker and lead. SPECIMENS: InterStim pacemaker and lead. ESTIMATED BLOOD LOSS: Minimal. CLINICAL HISTORY: This is a 60-year-old female with bowel and bladder problems. She had issues with fecal incontinence as well as urinary urge incontinence. She did respond well to an InterStim pacemaker and lead placement. This was in fall of last year. Over time, the device has ceased to function properly. It has also migrated upwards towards the chest. She is no longer feeling any stimulation. She would like to have the device removed. She was given Levaquin 500 mg IV reinforcing iron worker helper to the OR. DESCRIPTION OF PROCEDURE: The patient was placed in lithotomy position with the right side up, left side down. She was on a beanbag. We positioned her properly and padded all pressure points. Then, we withdrew the air from the beanbag to harden it up. She was given IV sedation. A 1% lidocaine with epinephrine was used for local anesthetic at the site overlying the pacemaker, which we could palpate through the skin. A 1-1/2-inch incision was made and the pseudocapsule around the pacemaker was entered into. The pacemaker was then manipulated to come out of the pocket through the skin incision. By gently tugging on the attached lead, we were able to identify the location where the lead went into the sacral foramen. The skin overlying the sacral foramen was then infiltrated with lidocaine. A small 1 cm incision was made here. A right angle dissector was used to free the lead and then by pulling sharply on the lead with a right angle clamp, we were able to fully extract the distal end of the lead. The distal end has tines on it, which prevent migration in the subcutaneous tissue. The lead was then cut proximal to the tines and the lead and pacemaker were removed in 2 separate directions. They were sent to pathology for gross identification only. The wound was irrigated out with normal saline. The small incision over the sacrum was closed using simple interrupted 3-0 Vicryl. The skin where the pacemaker had been was closed in 2 layers. A simple interrupted 3-0 Vicryl was used to reapproximate the subcutaneous tissue. Then, a running subcuticular closure of 4-0 Monocryl was made. Steri-Strips were applied and dressings were applied. I will see the patient in followup next week to check on wound healing. NTS:[id number] Voice Confirmation ID: [id number] DOCUMENT ID: [id number] OPERATIVE REPORT [id number] TA LORENZO ROBERT S MD at 0817 CC: [id number] DICTATION DATE: 03/28/20 1313 BAFFLE MOUNTER: 03/28/202000 [facility] 03/28/20 [place] [id number] [place] [address]
== END 2020-03-28 13:50 | disposition home or self-care (01) ==
LOC: D.OPS 08:17
PROVIDERS: Anesthesiology; ATTEND Urology
DX: T85.698A Other mechanical complication of other specified internal prosthetic devices, implants and grafts, initial encounter (principal); T82.120A Displacement of cardiac electrode, initial encounter; R33.8 Other retention of urine; J44.9 Chronic obstructive pulmonary disease, unspecified; Z72.0 Tobacco use; R15.2 Fecal urgency

== ENCOUNTER 2020-09-19 08:10 | Day surgery (SDC) | payer MEDICARE ==
[2020-09-16 14:14] LABS: BASOPHILS 1.1 % (0-2); EOSINOPHILS 2.8 % (0-7); HEMATOCRIT 44.7 % (36.0-48.0); HEMOGLOBIN 14.5 g/dL (12-16); IMMATURE GRANULOCYTES 0.2 % (0-5); LYMPHOCYTE ABS# 2.78 10x3/uL (1.18-3.74); LYMPHOCYTES 43.8 % (15-50); MCHC 32.4 g/dL (31.0-37.0); MCV 92.5 fL (80.0-100.0); MEAN PLATELET VOLUME 8.7 fL (7.4-10.4); MONOCYTES 8.4 % (2-11); NEUTROPHIL ABS# 2.77 10x3/uL (1.56-6.13); NEUTROPHILS 43.7 % (40-80); PLATELET COUNT 256 10x3/uL (130-400); RBC 4.83 10x6/uL (4.00-5.40); RDW 12.5 % (11.5-14.5); WBC 6.3 10x3/uL (4.8-10.8)
[2020-09-16 14:39] LABS: CALC OSMOLALITY 270 mosm/kg (275-300); CALCIUM 9.2 mg/dL (8.5-10.1); CHLORIDE - SERUM 102 mmol/L (98-107); CREATININE - SERUM 0.5 mg/dL (0.6-1.3); GLUCOSE 86 mg/dL (74-106); POTASSIUM - SERUM 4.3 mmol/L (3.5-5.1); SODIUM 137 mmol/L (136-145); UREA NITROGEN 7 mg/dL (7-18); eGFR NON AFRICAN AMERICAN > 90 mL/min (90-120)
[~2020-09-19] VITALS: Ht 172.7 cm; Wt 49.9 kg
--- NOTE | ~2020-09-19 | OP ---
PATIENT NAME: TA LORENZO MEDICAL RECORD: [id number] :56 LOCATION:D.OPS ADMISSION DATE: SURGEON: TRES TRAORE MD DATE OF OPERATION: 09/19/2020 PREOPERATIVE DIAGNOSIS: Pelvic pain. POSTOPERATIVE DIAGNOSES: 1. Pelvic pain. 2. Adhesive disease. 3. Left ovarian cyst. PROCEDURE PERFORMED: 1. Diagnostic laparoscopy. 2. Lysis of adhesions. 3. Left salpingo-oophorectomy. SURGEON: Tres Traore MD INTERNAL CORROSION SPECIALIST SURGEON: Claritza Lr DO DEODORIZER OPERATOR: Sade Gonzales. ANESTHESIOLOGIST: Dr. Schaffer. ANESTHESIA: General. FINDINGS: There are adhesions of the omentum to the abdominal wall. The left ovary has adhesed the bowel and the sidewall. The ovary contains approximately 2.5 to 3 cm simple-appearing cyst. SPECIMEN REMOVED: Ovary and cyst. SPECIMEN DISPOSITION: Pathology. ESTIMATED BLOOD LOSS: Minimal. FLUIDS: 800 mL of lactated Ringer's. URINE OUTPUT: Quantity sufficient void prior to this procedure. COMPLICATIONS: None. DRAINS: None. INDICATIONS: The patient is a 60-year-old female with persistent pelvic pain. The patient has had ultrasound that failed to demonstrate any mass or irregularity. The patient reports a history of a hysterectomy and bilateral salpingo-oophorectomy. The patient was consented for diagnostic laparoscopy and any indicated procedure. DESCRIPTION OF PROCEDURE: After informed consent was assured, the patient was taken to the operating room where anesthetic was obtained without difficulty. The patient was prepped and draped in the usual sterile fashion. An incision was made at the umbilicus to accommodate a 5-mm trocar, which was inserted OPERATIVE REPORT [id number] TA LORENZO without difficulty. Pneumoperitoneum was now developed. With the patient in steep Trendelenburg position, the bowel was swept free of the pelvis with the above findings. Using a Thunderbeat coagulation cutter, the adhesions in the left lower quadrant of the omentum to the abdominal wall was grasped, coagulated, and then . Dissection of the adhesions of the left ovary began superiorly and moves medial and inferior. Once the ovary has been mobilized and free of its adhesions, the infundibulopelvic ligament was identified. The tract of the ureter was noted to be well below the level of dissection. The IP was now compressed, coagulated, and . The dissection was carried out underneath the ovary. With a 10-mm port placed in the midline, the specimen and cyst was placed into an Endobag and removed. The pelvis was now copiously irrigated, irrigant removed. Adequate hemostasis was noted. The accessory trocars that were placed were now removed under direct visualization and pneumoperitoneum released. The fascia was closed with an interrupted stitch at the midline 12-mm port site. All sites were closed with subcuticular stitch. Dermabond applied. Sponge, lap, and needle counts were reported correct times two. TRANSINT:[id number] Voice Confirmation ID: [id number] DOCUMENT ID: [id number] TRES TRAORE MD CC: [id number] DICTATION DATE: 10/04/20 1350 EMPLOYEE SERVICES MANAGER: 10/04/20 1421 [facility] 09/19/20 [facility] [address] [place] [address]
[~2020-09-19 08:10] MED LIST changes: +DEXILANT60 MG PO; +MUPIROCIN22 GM TOPICAL
[2020-09-19 08:52] LABS: UDS - AMPHET NEGATIVE QUAL (NEGATIVE); UDS - BARB NEGATIVE QUAL (NEGATIVE); UDS - BENZO NEGATIVE QUAL (NEGATIVE); UDS - COCAINE NEGATIVE QUAL (NEGATIVE); UDS - OPIATE NEGATIVE QUAL (NEGATIVE); UDS - PCP NEGATIVE QUAL (NEGATIVE); UDS - THC NEGATIVE QUAL (NEGATIVE)
[2020-09-19 10:37] VITALS: BP 121/53; Ht 172.7 cm; Wt 49.9 kg
--- NOTE | 2020-09-19 15:16 | NUR ---
1458 BNC PLACED BACK ON PT FOR A OXYGEN SATURATION OF 88%. ENCOURAGING PT TO TAKE DEEP BREATHS AND COUGH.
--- NOTE | 2020-09-19 16:54 | NUR ---
1505 DC'D C. 1540 PT VOIDED. PT STATES SHE HAS A HX OF NOT BEING ABLE TO EMPTY HER BLADDER COMPLETELY AND SELF CATHS AT HOME. PT STATES SHE HAS SUPPLIES AT HOME TO DO THIS IF NEEDED. 1555 IV DC'D. CATHETER TIP INTACT. NO BLEEDING,SWELLING OR REDNESS AT IV SITE. COBAN DRESSING APPLIED. 1604 PT IS DRESSED AND READY TO GO HOME. HER GRANDDAUGHTER IS AT THE BEDSIDE AND WAS INCLUDED IN REVIEW OF DISCHARGE INSTRUCTIONS. BOTH PT AND HER GRANDDAUGHTER VOICE UNDERSTANDING OF THESE INSTRUCTIONS.
== END 2020-09-19 16:04 | disposition home or self-care (01) ==
LOC: D.OPS 08:10
PROVIDERS: Anesthesiology; ATTEND Obstetrics & Gynecology
DX: R10.2 Pelvic and perineal pain (principal); K66.0 Peritoneal adhesions (postprocedural) (postinfection); N83.202 Unspecified ovarian cyst, left side; F17.200 Nicotine dependence, unspecified, uncomplicated; J44.9 Chronic obstructive pulmonary disease, unspecified

== ENCOUNTER 2020-10-17 06:26 | Day surgery (SDC) | payer MEDICARE ==
[~2020-10-17] VITALS: Ht 172.7 cm; Wt 49.5 kg
[2020-10-17 06:47] LABS: BASOPHILS 0.7 % (0-2); EOSINOPHILS 4.7 % (0-7); HEMATOCRIT 44.3 % (36.0-48.0); HEMOGLOBIN 14.7 g/dL (12-16); IMMATURE GRANULOCYTES 0.2 % (0-5); LYMPHOCYTE ABS# 2.18 10x3/uL (1.18-3.74); LYMPHOCYTES 36.9 % (15-50); MCH 30.5 pg (26.0-34.0); MCHC 33.2 g/dL (31.0-37.0); MCV 91.9 fL (80.0-100.0); MEAN PLATELET VOLUME 9.2 fL (7.4-10.4); NEUTROPHIL ABS# 2.81 10x3/uL (1.56-6.13); NEUTROPHILS 47.5 % (40-80); PLATELET COUNT 274 10x3/uL (130-400); RBC 4.82 10x6/uL (4.00-5.40); RDW 12.6 % (11.5-14.5); WBC 5.9 10x3/uL (4.8-10.8)
[2020-10-17 06:48] LABS: CALC OSMOLALITY 276 mosm/kg (275-300); CALCIUM 9.3 mg/dL (8.5-10.1); CARBON DIOXIDE 29.8 mmol/L (21.0-32.0); CHLORIDE - SERUM 103 mmol/L (98-107); CREATININE - SERUM 0.7 mg/dL (0.6-1.3); GLUCOSE 92 mg/dL (74-106); POTASSIUM - SERUM 4.2 mmol/L (3.5-5.1); SODIUM 139 mmol/L (136-145); UREA NITROGEN 9 mg/dL (7-18); eGFR NON AFRICAN AMERICAN 90 mL/min (90-120)
[2020-10-17 06:57] LABS: APTT 27.3 SECONDS (22.8-39.4)
[2020-10-17 07:34] LABS: INR 0.96 (0.85-1.17); PROTIME 11.8 SECONDS (11.6-15.0)
[2020-10-17 08:49] VITALS: Ht 172.7 cm; Wt 49.5 kg
--- NOTE | 2020-10-17 12:02 | NUR ---
1145 PCXR HERE AND DONE. TOLERATED WELL. BACK ON LEFT SIDE.
--- NOTE | 2020-10-17 14:09 | NUR ---
1340 IV REMOVED AND INSTRUCTIONS GIVEN.
== END 2020-10-17 13:50 | disposition home or self-care (01) ==
LOC: D.CT 06:26
PROVIDERS: General Practice; ATTEND Internal Medicine Medical Oncology
DX: R91.1 Solitary pulmonary nodule (principal); Z85.72 Personal history of non-Hodgkin lymphomas; Z85.118 Personal history of other malignant neoplasm of bronchus and lung

== ENCOUNTER 2020-10-19 12:23 | Inpatient (IN) | payer MEDICARE, MEDICAID ==
[~2020-10-19] VITALS: Ht 172.7 cm; Wt 49.5 kg
[2020-10-19 13:00] LABS: BASOPHILS 0.4 % (0-2); EOSINOPHILS 3.4 % (0-7); HEMATOCRIT 42.7 % (36.0-48.0); IMMATURE GRANULOCYTES 0.1 % (0-5); LYMPHOCYTES 32.9 % (15-50); MCH 30.6 pg (26.0-34.0); MCHC 32.8 g/dL (31.0-37.0); MCV 93.2 fL (80.0-100.0); MEAN PLATELET VOLUME 9.2 fL (7.4-10.4); MONOCYTES 7.9 % (2-11); NEUTROPHIL ABS# 3.69 10x3/uL (1.56-6.13); NEUTROPHILS 55.3 % (40-80); PLATELET COUNT 249 10x3/uL (130-400); RBC 4.58 10x6/uL (4.00-5.40); RDW 12.5 % (11.5-14.5); WBC 6.7 10x3/uL (4.8-10.8)
[2020-10-19 13:15] LABS: CALC OSMOLALITY 275 mosm/kg (275-300); CALCIUM 9.3 mg/dL (8.5-10.1); CARBON DIOXIDE 32.6 mmol/L (21.0-32.0); CHLORIDE - SERUM 101 mmol/L (98-107); CREATININE - SERUM 0.7 mg/dL (0.6-1.3); GLUCOSE 96 mg/dL (74-106); SODIUM 139 mmol/L (136-145); UREA NITROGEN 6 mg/dL (7-18); eGFR NON AFRICAN AMERICAN 90 mL/min (90-120)
[2020-10-19 13:51] LABS: APTT 25.8 SECONDS (22.8-39.4); INR 0.99 (0.85-1.17); PROTIME 12.1 SECONDS (11.6-15.0)
[2020-10-19 14:18] LABS: CREATINE KINASE 74 UL (21-215); TROPONIN-I < 0.017 ng/mL (0.000-0.060)
[2020-10-19] MEDS ORDERED: DECADRON0.5 MG PO (15:40)
[2020-10-19] MEDS ORDERED: TRELEGY ELLIPT1 EACH INH (15:41)
[2020-10-19 15:48] VITALS: BP 122/84; BMI 16.6
--- NOTE | 2020-10-19 16:13 | NUR ---
ALERT AND ORIENTED X4. NO DYSPNEA OR HEMOPTOSIS NOTED AT THIS TIME. IV INTACT TO RIGHT A/C WITH NO S/S OF INFECTION/INFILTRATION. UP ADLIB AND ENCOURAGED TO USE CALL LIGHT FOR ASSSIT.
[2020-10-19 19:28] LABS: CKMB 0.8 U/L (0.0-3.6); CREATINE KINASE 64 UL (21-215); TROPONIN-I < 0.017 ng/mL (0.000-0.060)
[2020-10-19 20:00] VITALS: BP 143/72
[2020-10-20] VITALS: BP 113/53
[2020-10-20 04:00] VITALS: BP 108/48
--- NOTE | 2020-10-20 05:57 | NUR ---
Pt has remained in bed resting this night. SOBOE and with CDB exercises. Utilizes IS appropriately. Meds have infused appropriately through patent IV.
[2020-10-20 07:26] LABS: BASOPHILS 0 % (0-2); EOSINOPHILS 0.2 % (0-7); HEMATOCRIT 38.8 % (36.0-48.0); HEMOGLOBIN 12.5 g/dL (12-16); IMMATURE GRANULOCYTES 0.2 % (0-5); LYMPHOCYTE ABS# 0.93 10x3/uL (1.18-3.74); LYMPHOCYTES 17.6 % (15-50); MCH 29.6 pg (26.0-34.0); MCHC 32.2 g/dL (31.0-37.0); MCV 91.9 fL (80.0-100.0); MEAN PLATELET VOLUME 9.5 fL (7.4-10.4); MONOCYTES 2.5 % (2-11); NEUTROPHIL ABS# 4.21 10x3/uL (1.56-6.13); NEUTROPHILS 79.5 % (40-80); PLATELET COUNT 276 10x3/uL (130-400); RBC 4.22 10x6/uL (4.00-5.40); RDW 12.4 % (11.5-14.5); WBC 5.3 10x3/uL (4.8-10.8)
[2020-10-20 08:15] VITALS: Ht 172.7 cm; Wt 49.5 kg
[2020-10-20 08:27] LABS: ALBUMIN 3.1 g/dL (3.4-5.0); ALKALINE PHOSPHATASE 86 U/L (30-120); ALT (SGPT) 16 U/L (10-68); BILIRUBIN - TOTAL 0.31 mg/dL (0.2-1.3); CALC OSMOLALITY 272 mosm/kg (275-300); CALCIUM 9.1 mg/dL (8.5-10.1); CARBON DIOXIDE 23.8 mmol/L (21.0-32.0); CHLORIDE - SERUM 101 mmol/L (98-107); CKMB 0.6 U/L (0.0-3.6); CREATINE KINASE 54 UL (21-215); CREATININE - SERUM 0.7 mg/dL (0.6-1.3); GLUCOSE 164 mg/dL (74-106); PHOSPHOROUS 2.9 mg/dL (2.5-4.9); POTASSIUM - SERUM 4.5 mmol/L (3.5-5.1); PROTEIN - SERUM 6.3 g/dL (6.4-8.2); SODIUM 135 mmol/L (136-145); TROPONIN-I < 0.017 ng/mL (0.000-0.060); eGFR NON AFRICAN AMERICAN 90 mL/min (90-120)
[2020-10-20 08:36] LABS: UREA NITROGEN 8 mg/dL (7-18)
[2020-10-20 09:31] VITALS: BP 166/57
[2020-10-20] MEDS ORDERED: PERFOROMIS20 MCG/21 INH (11:57)
[2020-10-20] MEDS ORDERED: TESSALON PERLE100 MG PO (11:57)
[2020-10-20] MEDS ORDERED: ATROVENT 0.02%2.5 ML UPD (11:57)
[2020-10-20] MEDS ORDERED: NICODERM CQ1 EAC3 TRANSDERM (11:57)
[2020-10-20] MEDS ORDERED: DOXYCYCLINE HY100 M2 PO (11:58)
[2020-10-20] MEDS ORDERED: PULMICORT0.5 MG/21 UPD (11:58)
[2020-10-20] MEDS ORDERED: FLORAJEN DIGES1 EACH PO (11:58)
--- NOTE | 2020-10-20 12:10 | NUR ---
DISCHARGE INSTRUCTIONS REVIEWED AND SIGNED WITH PT, ALL QUESTIONS ANSWERED, IV REMOVED TIP INTACT, PT LEFT AMBULATORY WITH STABLE GAIT, NO SIGNS OF DISTRESS, PT IN STABLE CONDITION
[2020-10-20] MEDS ORDERED: MUCINEX DM ER1 EAC1 PO (12:29)
[2020-10-20] MEDS ORDERED: OMNICEF300 MG PO (12:29)
[2020-10-20] MEDS ORDERED: PREDNISONE10 MG PO (12:29)
[2020-10-20 13:31] VITALS: BP 145/58
--- NOTE | 2020-10-20 18:17 | MORECARE ---
CASE MANAGEMENT DISCHARGE SUMMARY PATIENT: TA LORENZO FUAD UNIT: [id number] ADM DATE: 10/19/20 AGE: 60 : 56 SEX: F [facility] AUTHOR: JACLYN,DOC PHYSICIAN: REFERRING PHYSICIAN: JOSHUA TAMAYO MD DATE OF SERVICE: 10/20/20 Case Management Discharge Planning Summary DCP REVIEW SUMMARY ANTICIPATED D/C DATE: 10/20/2020 EXPECTED LOS : 1 CASE STATUS: DCP Initiated INITIAL REVIEW: 10/19/2020 INITIAL REVIEWER: Casey Newsome FINAL DISCHARGE DISPOSITION: : FINAL REVIEWER: FINAL REVIEW DATE: DCP Focus Questions & Answers QUESTION: ANSWER : PATIENT: TA LORENZO ENCOUNTER: [id number] MEDICAL RECORD#: [id number] ADMISSION DATE: 10/19/2020 DISCHARGE DATE: 10/20/2020 ATTENDING MD: : AGE: 60 MARITAL STATUS: D DC PLAN ID: [id number] FACILITY: [facility] PRINTED ON: 10/20/20 18:16 CT All edits/amendments must be made on the electronic document DICTATION DATE: 10/20/201815 PRE PRESS PROOFER: DM 10/20/201815 RPT#: [id number] DC DATE:10/20/20 STATUS: DIS IN [facility] [address] [place] [address] END OF REPORT
--- NOTE | 2020-10-20 18:27 | MORECARE ---
CASE MANAGEMENT DISCHARGE SUMMARY PATIENT: TA LORENZO UNIT: [id number] ADM DATE: 10/19/20 AGE: 60 : 56 SEX: F ROOM/BED: D.0769 AUTHOR: JACLYNDOC PHYSICIAN: REFERRING PHYSICIAN: JOSHUA TAMAYO MD DATE OF SERVICE: 10/20/20 Case Management Discharge Planning Summary DCP REVIEW SUMMARY ANTICIPATED D/C DATE: 10/20/2020 EXPECTED LOS : 1 CASE STATUS: DCP Initiated INITIAL REVIEW: 10/19/2020 INITIAL REVIEWER: Casey Newsome FINAL DISCHARGE DISPOSITION: : FINAL REVIEWER: FINAL REVIEW DATE: DCP Focus Questions & Answers DCP Evaluation QUESTION: ANSWER Patient and/or caregiver agree upon recommended discharge plan? : Yes Patient's current cognitive status: : *Oriented to person, place, situation, time and present Patient's ability to cope with chronic illness : d. No chronic illness Patient gives permission to discuss discharge plans with: (name, relationship and number) : brotherManjeet, Family / Caregiver's ability to cope with chronic illness: : a. Adequate (ability to meet patient's medical needs, ensures patient attends medical appts.) Does the patient have the ability to pay for or attain post discharge needs / services? : Yes Functional screen assessment: : Basic needs can adequately be met by self Family / Caregiver's ability to cope with chronic illness: : a. Adequate (ability to meet patient's medical needs, ensures patient attends medical appts.) Physical Status: : Independent with ADL's Equipment needed for post hospitalization: : None Is there a likelihood that the patient will require additional services to return to the preadmission environment? : No Living Arrangements: : Home with Extended Family Patient with capacity for self-care or can be cared for in same environment as prior to hospitalization? : Yes Baseline cognitive status: : *Oriented to person, place, situation, time and present Physical environment modification needed / anticipated for discharge: : No Medication Management: : Patient states can read and understand medication labels Medication Management: : Patient states can afford medications Pharmacy name(s): : [facility] Does Patient have transportation to get home and to follow-up medical appointments when discharged from the hospital? : Yes Would patient like to participate in any Care Coordination programs (if applicable): : Not applicable Does the patient have electricity at home? : Yes Does the patient have running water in their house? : Yes Equipment in use: : Walker - Rolling Equipment in use: : Cane - Single Leg Other Equipment comments: : Oxygen Equipment agency name and contact information: : [employer] Mental health screen: : No mental health history DCP Re-evaluation QUESTION: ANSWER Would patient like to participate in any Care Coordination programs (if applicable): : Not applicable PATIENT: TA LORENZO ENCOUNTER: [id number] MEDICAL RECORD#: [id number] ADMISSION DATE: 10/19/2020 DISCHARGE DATE: 10/20/2020 ATTENDING MD: CECY: AGE: 60 MARITAL STATUS: D DC PLAN ID: [id number] FACILITY: [facility] PRINTED ON: 10/20/20 18:27 CT All edits/amendments must be made on the electronic document DICTATION DATE: 10/20/201826 FABRIC WORKER FITTER: [facility] 10/20/201826 RPT#: [id number] DC DATE:10/20/20 STATUS: DIS IN [facility] [address] [place] [address] END OF REPORT
--- NOTE | 2020-10-20 18:38 | MORECARE ---
CASE MANAGEMENT DISCHARGE SUMMARY PATIENT: TA LORENZO UNIT: [id number] ADM DATE: 10/19/20 AGE: 60 : 56 SEX: F ROOM/BED: D.2208 AUTHOR: JACLYN,SHEREE PHYSICIAN: REFERRING PHYSICIAN: JOSHUA TAMAYO MD DATE OF SERVICE: 10/20/20 Case Management Discharge Planning Summary COMMENTS ENTERED DATE: 10/20/20 18:35 CT COMMENT TYPE: Discharge Planning REVIEWER: Casey Newsome CM met with patient to complete DC plan and to evaluate needs. Patient lives independently with family and stated that her person to notify is her brother, Manjeet Presley, . Patient stated that her home is safe and has electricity and running water. Patient stated that the home has 3 steps to enter and she is able to manage the steps without difficulty. Patient stated that she has no problems paying for medications and she fills her medications at [facility]. Patient stated that her primary care physician is Dr. Daljit Hurley in [place], [place]. At discharge, the patient plans to return home and feels this is a safe discharge. CM discussed availability of home health, rehab services, and medical equipment. Patient declined HHS, SNF, IPR, and DME. Patient would like [facility] services, with company. Patient stated she has oxygen through [employer] and has both a cane and walker. Patient voiced no other needs at this time and is satisfied with DC plan. DC IMM delivered, explained, signed by the patient, and placed in chart. Signed form also left with the patient. CM will continue to follow and will assist as needed with dc plans/needs. DCP REVIEW SUMMARY ANTICIPATED D/C DATE: 10/20/2020 EXPECTED LOS : 1 CASE STATUS: DCP Initiated INITIAL REVIEW: 10/19/2020 INITIAL REVIEWER: Casey Newsome FINAL DISCHARGE DISPOSITION: : FINAL REVIEWER: FINAL REVIEW DATE: DCP Focus Questions & Answers DCP Evaluation QUESTION: ANSWER Patient gives permission to discuss discharge plans with: (name, relationship and number) : brothManjeet conroy, Patient's ability to cope with chronic illness : d. No chronic illness Patient's current cognitive status: : *Oriented to person, place, situation, time and present Family / Caregiver's ability to cope with chronic illness: : a. Adequate (ability to meet patient's medical needs, ensures patient attends medical appts.) Patient and/or caregiver agree upon recommended discharge plan? : Yes Physical Status: : Independent with ADL's Family / Caregiver's ability to cope with chronic illness: : a. Adequate (ability to meet patient's medical needs, ensures patient attends medical appts.) Functional screen assessment: : Basic needs can adequately be met by self Does the patient have the ability to pay for or attain post discharge needs / services? : Yes Living Arrangements: : Home with Extended Family Is there a likelihood that the patient will require additional services to return to the preadmission environment? : No Equipment needed for post hospitalization: : None Baseline cognitive status: : *Oriented to person, place, situation, time and present Patient with capacity for self-care or can be cared for in same environment as prior to hospitalization? : Yes Physical environment modification needed / anticipated for discharge: : No Medication Management: : Patient states can afford medications Medication Management: : Patient states can read and understand medication labels Pharmacy name(s): : [facility] Does Patient have transportation to get home and to follow-up medical appointments when discharged from the hospital? : Yes Would patient like to participate in any Care Coordination programs (if applicable): : Not applicable Does the patient have electricity at home? : Yes Does the patient have running water in their house? : Yes Equipment in use: : Cane - Single Leg Equipment in use: : Walker - Rolling Other Equipment comments: : Oxygen Equipment agency name and contact information: : [employer] Mental health screen: : No mental health history DCP Re-evaluation QUESTION: ANSWER Would patient like to participate in any Care Coordination programs (if applicable): : Not applicable PATIENT: TA LORENZO ENCOUNTER: [id number] MEDICAL RECORD#: [id number] ADMISSION DATE: 10/19/2020 DISCHARGE DATE: 10/20/2020 ATTENDING MD: CECY: AGE: 60 MARITAL STATUS: D DC PLAN ID: [id number] FACILITY: [facility] PRINTED ON: 10/20/20 18:38 CT All edits/amendments must be made on the electronic document DICTATION DATE: 10/20/201837 ASSISTED LIVING COORDINATOR: [facility] 10/20/201837 RPT#: [id number] [place] DATE:10/20/20 STATUS: DIS IN [facility] [address] [place] [address] END OF REPORT
--- NOTE | 2020-10-23 10:22 | MORECARE ---
CASE MANAGEMENT DISCHARGE SUMMARY PATIENT: TA LORENZO UNIT: [id number] ADM DATE: 10/19/20 AGE: 60 : 56 SEX: F ROOM/BED: D.2208 AUTHOR: JACLYN,DOC PHYSICIAN: REFERRING PHYSICIAN: JOSHUA TAMAYO MD DATE OF SERVICE: 10/23/20 Case Management Discharge Planning Summary COMMENTS ENTERED DATE: 10/20/20 18:35 CT COMMENT TYPE: Discharge Planning REVIEWER: Casey Newsome CM met with patient to complete DC plan and to evaluate needs. Patient lives independently with family and stated that her person to notify is her brother, Manjeet Presley, . Patient stated that her home is safe and has electricity and running water. Patient stated that the home has 3 steps to enter and she is able to manage the steps without difficulty. Patient stated that she has no problems paying for medications and she fills her medications at [facility]. Patient stated that her primary care physician is Dr. Daljit Hurley in [place], [place]. At discharge, the patient plans to return home and feels this is a safe discharge. CM discussed availability of home health, rehab services, and medical equipment. Patient declined HHS, SNF, IPR, and DME. Patient would like HHS services, with company. Patient stated she has oxygen through [employer] and has both a cane and walker. Patient voiced no other needs at this time and is satisfied with DC plan. DC IMM delivered, explained, signed by the patient, and placed in chart. Signed form also left with the patient. CM will continue to follow and will assist as needed with dc plans/needs. DCP REVIEW SUMMARY ANTICIPATED D/C DATE: 10/20/2020 EXPECTED LOS : 1 CASE STATUS: DCP Complete INITIAL REVIEW: 10/19/2020 INITIAL REVIEWER: Casey Newsome FINAL DISCHARGE DISPOSITION: 01 : Home or Self Care (Routine Discharge) FINAL REVIEWER: Casey Newsome FINAL REVIEW DATE: 10/23/2020 DCP Focus Questions & Answers DCP Evaluation QUESTION: ANSWER Patient and/or caregiver agree upon recommended discharge plan? : Yes Patient's current cognitive status: : *Oriented to person, place, situation, time and present Patient's ability to cope with chronic illness : d. No chronic illness Patient gives permission to discuss discharge plans with: (name, relationship and number) : brotherManjeet, Family / Caregiver's ability to cope with chronic illness: : a. Adequate (ability to meet patient's medical needs, ensures patient attends medical appts.) Does the patient have the ability to pay for or attain post discharge needs / services? : Yes Functional screen assessment: : Basic needs can adequately be met by self Family / Caregiver's ability to cope with chronic illness: : a. Adequate (ability to meet patient's medical needs, ensures patient attends medical appts.) Physical Status: : Independent with ADL's Equipment needed for post hospitalization: : None Is there a likelihood that the patient will require additional services to return to the preadmission environment? : No Living Arrangements: : Home with Extended Family Patient with capacity for self-care or can be cared for in same environment as prior to hospitalization? : Yes Baseline cognitive status: : *Oriented to person, place, situation, time and present Physical environment modification needed / anticipated for discharge: : No Medication Management: : Patient states can afford medications Medication Management: : Patient states can read and understand medication labels [facility] Does Patient have transportation to get home and to follow-up medical appointments when discharged from the hospital? : Yes Would patient like to participate in any Care Coordination programs (if applicable): : Not applicable Does the patient have electricity at home? : Yes Does the patient have running water in their house? : Yes Equipment in use: : Cane - Single Leg Equipment in use: : Walker - Rolling Other Equipment comments: : Oxygen Equipment agency name and contact information: : [employer] - [employer]XY[employer] supplies Mental health screen: : No mental health history DCP Re-evaluation QUESTION: ANSWER Would patient like to participate in any Care Coordination programs (if applicable): : Not applicable PATIENT: TA LORENZO ENCOUNTER: [id number] MEDICAL RECORD#: [id number] ADMISSION DATE: 10/19/2020 DISCHARGE DATE: 10/20/2020 ATTENDING MD: CECY: AGE: 60 MARITAL STATUS: D DC PLAN ID: [id number] FACILITY: [facility] PRINTED ON: 10/23/20 8:30 CT All edits/amendments must be made on the electronic document DICTATION DATE: 10/23/20829 BASIN FINISH OPERATOR TIG WELDER: DM 10/23/20829 RPT#: [id number] DC DATE:10/20/20 STATUS: DIS IN [facility] [address] [place] [address] END OF REPORT
== END 2020-10-20 13:15 | disposition home or self-care (01) | DRG 920 ==
LOC: D.ER 12:23 → D.MS 14:02
PROVIDERS: Family Medicine; ADMIT Family Medicine; ATTEND Family Medicine
DX: T81.89XA Other complications of procedures, not elsewhere classified, initial encounter (principal); R04.2 Hemoptysis; J96.11 Chronic respiratory failure with hypoxia; G62.9 Polyneuropathy, unspecified; M19.90 Unspecified osteoarthritis, unspecified site; G89.29 Other chronic pain; M54.9 Dorsalgia, unspecified; K21.9 Gastro-esophageal reflux disease without esophagitis; G47.33 Obstructive sleep apnea (adult) (pediatric); J43.9 Emphysema, unspecified; E78.5 Hyperlipidemia, unspecified; F17.200 Nicotine dependence, unspecified, uncomplicated; N18.9 Chronic kidney disease, unspecified; D02.22 Carcinoma in situ of left bronchus and lung

== ENCOUNTER → 2020-11-06 14:09 | Outpatient (CLI) | payer MEDICARE, MEDICAID ==
[2020-10-20 08:15] VITALS: BMI 16.6
[~2020-11-06 14:09] MED LIST changes: +ATROVENT 0.02%2.5 ML UPD; +DECADRON0.5 MG PO; +DOXYCYCLINE HY100 M2 PO; +FLORAJEN DIGES1 EACH PO; +MUCINEX DM ER1 EAC1 PO; +NICODERM CQ1 EAC3 TRANSDERM; +OMNICEF300 MG PO; +PERFOROMIS20 MCG/21 INH; +PULMICORT0.5 MG/21 UPD; +TESSALON PERLE100 MG PO
== END | disposition home or self-care (01) ==
LOC: D.RT 14:09
PROVIDERS: ATTEND Internal Medicine Pulmonary Disease
DX: J44.9 Chronic obstructive pulmonary disease, unspecified (principal); Z11.52 Encounter for screening for COVID-19

== ENCOUNTER → 2020-11-26 09:27 | Outpatient (CLI) | payer MEDICARE, MEDICAID ==
[2020-10-20 08:15] VITALS: BMI 16.6
== END | disposition home or self-care (01) ==
LOC: D.NM 09:27
PROVIDERS: ATTEND Nurse Practitioner Family
DX: C34.90 Malignant neoplasm of unspecified part of unspecified bronchus or lung (principal)